=== PATIENT | male | born 1945 | race Caucasian/White ===

== ENCOUNTER 2017-12-30 17:54 | Emergency (ER) | payer MEDICARE, BC ==
[2017-12-30 18:15] VITALS: BP 128/78
[2017-12-30] MEDS ORDERED: Acetaminophen TAB* 325 MG PO ONE (18:31)
--- NOTE | 2017-12-30 18:34 | ED ---
Sepsis HPI - HPI Summary HPI Summary: 72 yr old male with the complaint of fever, chills. He has mild frontal headache. No dizziness, light headedness. No runny nose, sore throat, rash, ear pain. No SOB, NO CP, No cough - History of Current Complaint Chief Complaint: UCGeneralIllness Time Seen by Provider: 12/30/17 18:20 Stated Complaint: FEVER/ TICK BITE Pain Intensity: 0 - Allergy/Home Medications Allergies/Adverse Reactions: Allergies Allergy/AdvReac Type Severity Reaction Status Date / Time No Known Allergies Allergy Verified 12/30/17 18:15 PMH/Surg Hx/FS Hx/Imm Hx - Surgical History Surgery Procedure, Year, and Place: hernia repair Infectious Disease History: No Infectious Disease History: Denies: Traveled Outside the [place] in Last 30 Days - Family History Known Family History: Positive: None - Social History Occupation: Employed Full-time Alcohol Use: Rare Substance Use Type: Reports: None Smoking Status (MU): Never Smoked Tobacco Review of Systems Positive: Fever, Chills Negative: Photophobia Negative: Sore Throat, Ear Ache, Nasal Discharge Negative: Chest Pain Negative: Shortness Of Breath, Cough Negative: Abdominal Pain, Vomiting, Diarrhea, Nausea Negative: burning, dysuria Negative: Myalgia Negative: Rash Positive: Headache All Other Systems Reviewed And Are Negative: Yes Physical Exam Triage Information Reviewed: Yes Vital Signs On Initial Exam: Initial Vitals Temp Pulse Resp BP Pulse Ox 102.8 F 98 16 128/78 98 12/30/17 18:11 12/30/17 18:11 12/30/17 18:11 12/30/17 18:11 12/30/17 18:11 Vital Signs Reviewed: Yes Appearance: Positive: Well-Appearing, No Pain Distress Skin: Positive: Warm, Skin Color Reflects Adequate Perfusion Head/Face: Positive: Normal Head/Face Inspection Eyes: Positive: EOMI ENT: Positive: Pharynx normal. Negative: Nasal congestion Neck: Positive: Nontender Respiratory/Lung Sounds: Positive: Clear to Auscultation, Breath Sounds Present Cardiovascular: Positive: RRR. Negative: Murmur Abdomen Description: Positive: Nontender. Negative: CVA Tenderness (R), CVA Tenderness (L) Musculoskeletal: Positive: Strength/ROM Intact Neurological: Positive: Sensory/Motor Intact, Alert, Oriented to Person Place, Time, CN Intact II-III Psychiatric: Positive: Normal - Enmanuel Coma Scale Best Eye Response: 4 - Spontaneous Best Motor Response: 6 - Obeys Commands Best Verbal Response: 5 - Oriented Coma Scale Total: 15 Diagnostics - Vital Signs Vital Signs Temp Pulse Resp BP Pulse Ox 12/30/17 18:11 102.8 F 98 16 128/78 98 - Laboratory Lab Statement: Any lab studies that have been ordered have been reviewed, and results considered in the medical decision making process. Course/Dx - Course Course Of Treatment: 72 yr old male with fever no source. They are signing out AMA, risk of sepsis. Discussed with DEQUAN Hutchins in [facility]. is driving him there. - Differential Dx/Clinical Impression Provider Diagnosis: Fever Discharge - Sign-Out/Discharge Documenting (check all that apply): Discharge/Admit/Transfer - Discharge Plan Condition: Good Disposition: AGAINST MEDICAL ADVICE Patient Education Materials: Fever in Adults (ED) Referrals: Arcenio Cartagena MD [Primary Care Provider] - - Billing Disposition and Condition Condition: GOOD Disposition: Against Medical Advice
== END 2017-12-30 18:37 | disposition left against medical advice (07) ==
LOC: UCCORT 17:54
DX: R50.9 Fever, unspecified (principal); R51 Headache
CPT/HCPCS: 99202; G0463

== ENCOUNTER 2017-12-30 19:42 | Emergency (ER) | payer MEDICARE, BC ==
[2017-12-30] MEDS ORDERED: Acetaminophen TAB* 325 MG PO ONE (20:10)
[2017-12-30] MEDS ORDERED: NS 0.9% 1000 ML* 2,000 ML IV ONE (20:11)
[2017-12-30 20:39] LABS: ABS Basophils 0 10^3/ul (0-0.2); ABS Eosinophils 0 10^3/ul (0-0.6); ABS Lymphocytes 0.9 10^3/ul (1.0-4.8); ABS Monocytes 0.9 10^3/ul (0-0.8); ABS Neutrophils 5.1 10^3/ul (1.5-7.7); ABS Nucleated RBC 0 10^3/ul; Eosinophil % 0.1 % (0-6); Hematocrit 44 % (42-52); Hemoglobin 15.4 g/dl (14.0-18.0); Lymphocyte % 12.4 % (25-47); Mean Corpuscular HGB Conc 35 g/dl (31-36); Mean Corpuscular Hemoglobin 32 pg (27-31); Mean Corpuscular Volume 90 fL (80-94); Mean Platelet Volume 7.6 um3 (7.4-10.4); Nucleated Red Blood Cells % 0.1; Platelet Count 155 10^3/ul (150-450); Red Blood Count 4.87 10^6/ul (4.0-5.4); Red Cell Distribution Width 13 % (10.5-15); White Blood Count 6.9 10^3/ul (3.5-10.8)
[2017-12-30 20:47] LABS: INR 1.09 (0.77-1.02)
[2017-12-30 20:59] LABS: EGFR Non-African American 78.4 (>60)
--- NOTE | 2017-12-30 21:04 | RAD ---
Indication: Fever. Single frontal view of the chest performed at 2042 hours was reviewed. No prior study is available for comparison. No mediastinal shift is noted. Heart is of normal size and configuration. Lung michelle appear clear. IMPRESSION: NO ACTIVE CARDIOPULMONARY DISEASE IS NOTED.
[2017-12-30 21:56] LABS: Urine Appearance Clear; Urine Blood 2+ (Negative); Urine Color Yellow; Urine Ketones Negative (Negative); Urine Protein Negative (Negative); Urine Urobilinogen Negative (Negative)
--- NOTE | 2017-12-30 22:38 | ED ---
Kylee Johnson Emily, scribed for Oc Santiago MD on 12/30/17 at 2007 . HPI Febrile Illness - HPI Summary HPI Summary: This patient is a 72 year old M referred to [facility] by convenient care accompanied by with a chief complaint of fever (max of 103) that began one day ago. The patient rates the pain 0/10 in severity. Symptoms aggravated by nothing. Symptoms alleviated by nothing. Patient reports headache and fatigue. Patient denies cough, CP, abd pain, nasal congestion, and sore throat. The patient denies being out in the son more than usual. Pt denies any knowledge of recent tick bite, but reports that he has been outside a lot recently. - History of Current Complaint Chief Complaint: EDFever Time Seen by Provider: 12/30/17 19:54 Hx Obtained From: Patient Onset/Duration: Started Days Ago, Atraumatic, Still Present Timing: Constant Temperature: 103 F Initial Severity: Mild Current Severity: Mild Pain Intensity: 0 Pain Scale Used: 0-10 Numeric Aggravating Factors: Nothing Alleviating Factors: Nothing Associated Signs and Symptoms: Other: - Positive headache and fatigue. Negative cough, CP, abd pain, nasal congestion, and sore throat. - Allergy/Home Medications Allergies/Adverse Reactions: Allergies Allergy/AdvReac Type Severity Reaction Status Date / Time No Known Allergies Allergy Verified 12/30/17 18:15 PMH/Surg Hx/FS Hx/Imm Hx Previously Healthy: Yes Opthamlomology History: Denies: Hx Legally Blind EENT History: Denies: Hx Deafness - Surgical History Surgery Procedure, Year, and Place: hernia repair Infectious Disease History: Yes Infectious Disease History: Denies: Traveled Outside the [place] in Last 30 Days - Family History Known Family History: Positive: Diabetes - Grandmother - Social History Occupation: Retired Lives: With Family Alcohol Use: Rare Hx Substance Use: No Substance Use Type: Reports: None Hx Tobacco Use: No Smoking Status (MU): Never Smoked Tobacco Review of Systems Positive: Fever, Fatigue Positive: Other - Negative nasal congestion. Negative: Sore Throat Negative: Chest Pain Negative: Cough Negative: Abdominal Pain Positive: Headache All Other Systems Reviewed And Are Negative: Yes Physical Exam - Summary Physical Exam Summary: VITAL SIGNS: Reviewed. GENERAL: ~Patient is a well-developed and nourished male who is lying comfortable in the stretcher. Patient is not in any acute respiratory distress. HEAD AND FACE: No signs of trauma. No ecchymosis, hematomas or skull depressions. No sinus tenderness. EYES: PERRLA, EOMI x 2, No injected conjunctiva, no nystagmus. EARS: Hearing grossly intact. Ear canals and tympanic membranes are within normal limits. MOUTH: Oropharynx within normal limits. NECK: Supple, trachea is midline, no adenopathy, no JVD, no carotid bruit, no c- spine tenderness, neck with full ROM. CHEST: Symmetric, no tenderness at palpation LUNGS: Clear to auscultation bilaterally. No wheezing or crackles. CVS: Regular rhythm, S1 and S2 present, no murmurs or gallops appreciated. Tachycardic at 120 BPM ABDOMEN: Soft, non-tender. No signs of distention. No rebound no guarding, and no masses palpated. Bowel sounds are normal. EXTREMITIES: FROM in all major joints, no edema, no cyanosis or clubbing. NEURO: Alert and oriented x 3. No acute neurological deficits. Speech is normal and follows commands. SKIN: Dry and warm Triage Information Reviewed: Yes Vital Signs On Initial Exam: Initial Vitals Temp Pulse Resp BP Pulse Ox 101.7 F 93 18 128/83 95 12/30/17 19:45 12/30/17 19:45 12/30/17 19:45 12/30/17 19:45 12/30/17 19:45 Vital Signs Reviewed: Yes Diagnostics - Vital Signs Vital Signs Temp Pulse Resp BP Pulse Ox 12/30/17 19:45 101.7 F 93 18 128/83 95 - Laboratory Result Diagrams: 12/30/17 20:32 12/30/17 20:32 Lab Statement: Any lab studies that have been ordered have been reviewed, and results considered in the medical decision making process. - Radiology CXR Radiology Interpretation Completed By: Radiologist - CXR reveals, per radiologist, no active cardiopulmonary disease is noted. ED physician has reviewed this radiology report. - EKG 2017 Cardiac Rate: NL EKG Rhythm: Sinus Rhythm - [address] Segment: Non-Specific - Changes in inferior leads Course/Dx - Course Assessment/Plan: This patient is a 72 year old M referred to [facility] by convenient care accompanied by with a chief complaint of fever (max of 103 ) that began one day ago. Bloodwork and UA obtained. CXR reveals, per radiologist, no active cardiopulmonary disease is noted. An EKG reveals nml sinus rhythm at 87 BPM with non-specific ST changes in inferior leads. The patient will be discharged home with follow up from PCP. Patient is agreeable with this plan. - Diagnoses Provider Diagnoses: Fever, Viral syndrome Discharge - Sign-Out/Discharge Documenting (check all that apply): Discharge/Admit/Transfer - Discharge home - Discharge Plan Condition: Stable Disposition: HOME Patient Education Materials: Fever in Adults (ED), Viral Syndrome (ED) Referrals: Arcenio Cartagena MD [Primary Care Provider] - 3 Days Additional Instructions: DRINK PLENTY OF FLUIDS. USE COOL COMPRESSED. MAKE SURE TO REST. RETURN TO THE EMERGENCY DEPARTMENT FOR NEW OR WORSENING SYMPTOMS The documentation as recorded by the Kylee sun Emily accurately reflects the service I personally performed and the decisions made by , Oc Santiago MD.
[2017-12-30 22:50] VITALS: BP 116/74
== END 2017-12-30 22:55 | disposition home or self-care (01) ==
LOC: ED 19:42
DX: R50.9 Fever, unspecified (principal); B34.9 Viral infection, unspecified; R51 Headache
CPT/HCPCS: 36415; 71045; 80053; 81003; 81015; 83605; 84484; 85025; 85610; 85730; 86140; 87040; 93005; 96360; 99284; A9270-GY

== ENCOUNTER 2018-07-09 09:02 | Emergency (ER) | payer MEDICARE, BC ==
--- NOTE | 2018-07-09 09:15 | ED ---
HPI Chest Pain - HPI Summary HPI Summary: A 73 y/o male presents to [facility] with a chief complaint of pain in his "lungs and back" for the past 2.5 months that has been getting worse for the past couple days. He states this pain is intermittent and is stabbing. He rates his pain as 4/10. He claims the pain mostly bothers him at night. The patient also c /o a mild nonproductive cough. He denies SOB, N/V and fever. He claims that doctors could not find out what his problem is. Per , the patient had a fever of 103 for 24 hours back in February. 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 Negative: Shortness of Breath, Nausea, Vomiting - Allergy/Home Medications Allergies/Adverse Reactions: Allergies Allergy/AdvReac Type Severity Reaction Status Date / Time No Known Allergies Allergy Verified 12/30/17 18:15 PMH/Surg Hx/FS Hx/Imm Hx Endocrine/Hematology History: Denies: Hx Diabetes Cardiovascular History: Denies: Hx Hypercholesterolemia, Hx Hypertension Sensory History: Denies: Hx Legally Blind, Hx Deafness Opthamlomology History: Denies: Hx Legally Blind - Surgical History Surgery Procedure, Year, and Place: hernia repair Infectious Disease History: No Infectious Disease History: Denies: Traveled Outside the [place] in Last 30 Days - Family History Known Family History: Positive: Hypertension - mother, Diabetes - Grandmother - Social History Alcohol Use: Rare Hx Substance Use: No Substance Use Type: Reports: None Hx Tobacco Use: No Smoking Status (MU): Never Smoked Tobacco Review of Systems Negative: Fever Positive: Cough. Negative: Shortness Of Breath Negative: Vomiting, Nausea All Other Systems Reviewed And Are Negative: Yes Physical Exam - Summary Physical Exam Summary: VITAL SIGNS: Reviewed. GENERAL: Patient is a well-developed and nourished MALE who is lying comfortable in the stretcher. Patient is not in any acute respiratory distress. HEAD AND FACE: No signs of trauma. No ecchymosis, hematomas or skull depressions. No sinus tenderness. EYES: PERRLA, EOMI x 2, No injected conjunctiva, no nystagmus. EARS: Hearing grossly intact. Ear canals and tympanic membranes are within normal limits. MOUTH: Oropharynx within normal limits. NECK: Supple, trachea is midline, no adenopathy, no JVD, no carotid bruit, no c- spine tenderness, neck with full ROM. CHEST: Symmetric, no tenderness at palpation LUNGS: Clear to auscultation bilaterally. No wheezing or crackles. CVS: Regular rate and rhythm, S1 and S2 present, no murmurs or gallops appreciated. ABDOMEN: Soft, non-tender. No signs of distention. No rebound no guarding, and no masses palpated. Bowel sounds are normal. EXTREMITIES: FROM in all major joints, no edema, no cyanosis or clubbing. NEURO: Alert and oriented x 3. No acute neurological deficits. Speech is normal and follows commands. SKIN: Dry and warm Triage Information Reviewed: Yes Vital Signs On Initial Exam: Initial Vitals Temp Pulse Resp BP Pulse Ox 97.1 F 69 18 145/80 96 07/09/18 09:05 07/09/18 09:05 07/09/18 09:05 07/09/18 09:05 07/09/18 09:05 Vital Signs Reviewed: Yes Diagnostics - Vital Signs Vital Signs Temp Pulse Resp BP Pulse Ox 07/09/18 09:05 97.1 F 69 18 145/80 96 - Laboratory Result Diagrams: 07/09/18 09:37 07/09/18 09:37 Lab Statement: Any lab studies that have been ordered have been reviewed, and results considered in the medical decision making process. - Radiology CXR Radiology Interpretation Completed By: Radiologist Summary of Radiographic Findings: No active cardiopulmonary disease. ED physician has reviewed this imaging report. - EKG 09:20 Cardiac Rate: NL - 67 bpm EKG Rhythm: Sinus Rhythm Summary of EKG Findings: no ST elevations, similar to previous EKG done . Chest Pain Course/Dx - Course Assessment/Plan: A 73 y/o male presents to [facility] with a chief complaint of pain in his "lungs and back" for the past 2.5 months that has been getting worse for the past couple days. He states this pain is intermittent and is stabbing. He rates his pain as 4/10. He claims the pain mostly bothers him at night. The patient also c/o a mild nonproductive cough. He denies SOB, N/V and fever. He claims that doctors could not find out what his problem is. Per , the patient had a fever of 103 for 24 hours back in February. Blood work without any significant abnormality except for glucose of 106, troponin is 0.00. EKG is a normal sinus rhythm without any ST elevations. Chest x-ray impression shows no acute cuddy pulmonary disease. At this point I rule out any life-threatening conditions such as acute coronary syndrome and pulmonary embolism since the patients troponin is negative EKG shows no ST elevations, the patient is not hypoxic or tachycardic. Therefore the patient was discharged home from with follow-up with the primary care physician for further workup and management. I discussed all the findings and test results with the patient. Patient was instructed to return to the emergency room immediately if any of the symptoms return or worsens. Plan of care was discussed with the patient and understands and agrees. All questions were answered at patient satisfaction. There were no further complaints or concerns. Lung exam before discharge: CTA B/L. Good air exchange. No wheezing or crackles heard. CVS: S1 and S2 present. No murmurs appreciated. Patient is alert and oriented x 3. Patient is hemodynamically stable. Patient will be discharged home with follow up PCP in the next 2-3 days - Diagnoses Provider Diagnoses: Atypical chest pain Discharge - Sign-Out/Discharge Documenting (check all that apply): Patient Departure - DC - Discharge Plan Condition: Stable Disposition: HOME Patient Education Materials: Chest Pain (ED) Referrals: Arcenio Cartagena MD [Primary Care Provider] - 3 Days Additional Instructions: Return to the ED for any worsening or new symptoms. - Billing Disposition and Condition Condition: STABLE Disposition: Home - Attestation Statements Document Initiated by Scribe: Yes Documenting Scribe: Juan J Elias Provider For Whom Scribe is Documenting (Include Credential): Jose Manuel Pate MD Scribe Attestation: IJuan J, scribed for Jose Manuel Pate MD on 07/10/18 at 1029. Scribe Documentation Reviewed: Yes Provider Attestation: The documentation as recorded by the scribe, Juan J Elias accurately reflects the service I personally performed and the decisions made by me, Jose Manuel Pate MD Status of Scribe Document: Viewed Attestations User Type: Provider with Scribe Provider Attestation: The documentation recorded by the scribe accurately reflects the service I personally performed and the decisions made by me.
[2018-07-09 10:05] LABS: ABS Basophils 0 10^3/ul (0-0.2); ABS Eosinophils 0.1 10^3/ul (0-0.6); ABS Lymphocytes 1.5 10^3/ul (1.0-4.8); ABS Monocytes 0.7 10^3/ul (0-0.8); ABS Neutrophils 3.3 10^3/ul (1.5-7.7); ABS Nucleated RBC 0 10^3/ul; Eosinophil % 1.4 %; Hematocrit 46 % (42-52); Hemoglobin 15.7 g/dl (14.0-18.0); Lymphocyte % 26.8 %; Mean Corpuscular HGB Conc 34 g/dl (31-36); Mean Corpuscular Hemoglobin 31 pg (27-31); Mean Corpuscular Volume 92 fL (80-94); Mean Platelet Volume 8.1 fL (7.4-10.4); Nucleated Red Blood Cells % 0; Platelet Count 205 10^3/ul (150-450); Red Blood Count 4.99 10^6/ul (4.00-5.40); Red Cell Distribution Width 14 % (10.5-15); White Blood Count 5.7 10^3/ul (3.5-10.8)
[2018-07-09 10:26] LABS: EGFR Non-African American 88.9 (>60)
[2018-07-09 10:48] VITALS: BP 135/88
== END 2018-07-09 10:46 | disposition home or self-care (01) ==
LOC: ED 09:02
DX: R07.89 Other chest pain (principal); R05 Cough
CPT/HCPCS: 36415; 71046; 80053; 82550; 82553; 83605; 83880; 84443; 84484; 85025; 93005; 99282